=== PATIENT | female | born 1975 | race Two or more races ===

== ENCOUNTER 2017-09-15 11:33 | Emergency (ER) | payer MEDICAID, OTHER ==
[~2017-09-15] VITALS: Ht 154.9 cm; Wt 86.2 kg
[2017-09-15 11:59] VITALS: BP 100/71
[2017-09-15] MEDS ORDERED: KETOROLAC TROMETH 60MG/2ML VIAL IM ONE (12:45)
[2017-09-15] MEDS ORDERED: CYCLOBENZAPRINE HCL 10 MG TAB PO ONE (12:45)
== END 2017-09-15 13:16 | disposition home or self-care (01) ==
LOC: ER 11:33
DX: M54.9 Dorsalgia, unspecified (principal)
CPT/HCPCS: 96372; 99283; J1885